=== PATIENT | male | born 1985 | race Caucasian/White ===

== ENCOUNTER 2016-05-07 16:13 | Emergency (ER) | payer OTHER ==
[~2016-05-07] VITALS: Ht 180.3 cm; Wt 77.3 kg
[2016-05-07 16:31] VITALS: Ht 180.3 cm; Wt 77.3 kg
[2016-05-07] MEDS ORDERED: HYDROCODONE/APAP (5/325) TAB PO ONE (17:00)
--- NOTE | 2016-05-07 17:04 | RADRPT ---
PROCEDURE: US Scrotum. CLINICAL INDICATION: Pain, right testicular trauma TECHNIQUE: Multiple sonographic images of the scrotal region were obtained utilizing a linear arra y transducer with grayscale and color-flow and a Doppler imaging. The images were reviewed on a high -resolution PACS workstation. COMPARISON: No prior studies are available for comparison. FINDINGS: The right testicle is well visualized and has a normal echotexture. No focal areas of abnormal echog enicity are visualized. The right testicle measures measures 3.8 x 2.1 x 2.5 cm. There is normal col or-flow. The right epididymis is visualized and unremarkable in appearance. There is normal color-fl ow. The left testicle is well visualized and has a normal echotexture. No focal areas abnormal echogenic ity are visualized. The left testicle measures measures 4.6 x 1.9 x 2.5 cm. There is normal color-fl ow. The left epididymis is visualized and is unremarkable in appearance. There is normal color-flow. There is a mild right hydrocele. RPTAT: AA IMPRESSION: Mild right hydrocele. Otherwise unremarkable. .Juan Orozco MD, Date Time Electronically viewed and signed by .Juan Orozco MD, MD on 05/07/2016 17:04 .S/
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
[2016-05-07] MEDS ORDERED: HYDR-906 PO (17:45)
[2016-05-07] MEDS ORDERED: NAPR-260 PO (17:45)
[2016-05-07 17:53] VITALS: PULSE 72; RESP 16
== END 2016-05-07 17:54 | disposition home or self-care (01) ==
LOC: FTE 16:13
DX: S39.94XA Unspecified injury of external genitals, initial encounter (principal); W50.1XXA Accidental kick by another person, initial encounter; Y92.9 Unspecified place or not applicable
CPT/HCPCS: 76870; 81003